=== PATIENT | female | born 1945 | race Caucasian/White ===

== ENCOUNTER 2018-06-24 14:10 | Inpatient (IN) | payer MEDICARE ==
--- NOTE | 2018-06-24 14:35 | ED ---
Head Injury - HPI Summary HPI Summary: This patient is a 73 year old F presenting to ED accompanied by and daughter with a chief complaint of increased confusion s/p fall and head injury x2 about 2 weeks ago. She also fell a couple times on March 26, 2018. She went prompted to come to the ED by Family Medicine for blood work and a CT. She also has been having visual hallucinations. The patient rates the pain 0/10 in severity. Symptoms aggravated by nothing. Symptoms alleviated by nothing. Patient denies N/V/D, fever, chills, dizziness/light-headedness, CP, SOB, dysuria, and hematuria. Denies FHx of Alzheimers. - History Of Current Complaint Chief Complaint: EDHeadInjury Stated Complaint: GENERAL ILLNESS Time Seen by Provider: 06/24/18 14:21 Hx Obtained From: Patient, Family/Epic Professional - accompanied by and daughter Mechanism Of Injury: Fall From A Standing Position Onset/Duration: Started Weeks Ago Severity Currently: None Pain Intensity: 0 Pain Scale Used: 0-10 Numeric Aggravating Factor(s): Other: - nothing Alleviating Factor(s): Other: - nothing Associated Signs And Symptoms: Confusion - Allergies/Home Medications Allergies/Adverse Reactions: Allergies Allergy/AdvReac Type Severity Reaction Status Date / Time Penicillins AdvReac Mild See Comment Verified 06/24/18 14:13 Home Medications: Home Medications ALPRAZolam TAB* [Xanax TAB*] 0.25 mg PO BID PRN 06/24/18 [History Confirmed 04/13] Aspirin EC TAB* [Ecotrin EC Low Dose 81 MG*] 81 mg PO DAILY 06/24/18 [History Confirmed 06/24/18] Budesonide/Formote 160/4.5(NF) [Symbicort 160/4.5 (NF)] 1 puff INH BID PRN 06/24 [History Confirmed 06/24/18] Cranberry Conc/Ascorbic Acid [Cranberry Concentrate] 1 cap PO DAILY 06/24/18 [ History Confirmed 06/24/18] Eszopiclone TAB(NF) [Lunesta TAB(NF)] 2 mg PO DAILY 06/24/18 [History Confirmed 06/24/18] Furosemide TAB* [Lasix TAB*] 40 mg PO DAILY 06/24/18 [History Confirmed 06/24/18 ] HYDROcodone/ACETAMIN 5-325 MG* [Hitterdal 5-325 TAB*] 1 tab PO Q6H PRN 06/24/18 [ History Confirmed 06/24/18] Metoprolol Tartrate TAB* [Lopressor TAB*] 50 mg PO BID 06/24/18 [History Confirmed 06/24/18] Montelukast Sodium TAB* [Singulair TAB*] 10 mg PO DAILY 06/24/18 [History Confirmed 06/24/18] Nitroglycerin TAB 0.4 MG* 0.4 mg SL Q5M PRN 06/24/18 [History Confirmed 06/24/18 ] Potassium 99 mg PO DAILY 06/24/18 [History Confirmed 06/24/18] Simvastatin TAB(NF) [Zocor(NF)] 20 mg PO DAILY 06/24/18 [History Confirmed 06/24] predniSONE TAB* [Deltasone 10 MG TAB*] 10 mg PO DAILY 06/24/18 [History Confirmed 06/24/18] PMH/Surg Hx/FS Hx/Imm Hx Cardiovascular History: Reports: Hx Hypercholesterolemia, Hx Hypertension Denies: Other Cardiovascular Problems/Disorders Respiratory History: Reports: Hx Chronic Bronchitis, Hx Chronic Obstructive Pulmonary Disease (COPD) Denies: Other Respiratory Problems/Disorders Musculoskeletal History: Reports: Hx Back Problems - in approximately 2008, no problem since Sensory History: Reports: Hx Contacts or Glasses Opthamlomology History: Reports: Hx Contacts or Glasses Psychiatric History: Reports: Hx Anxiety - When trouble breathing. Denies: Other Psychiatric Issues/Disorders - Surgical History Surgery Procedure, Year, and Place: hysterectomy, cyst removal x 2 in right breast, benign. Hx Anesthesia Reactions: No - Immunization History Date of Tetanus Vaccine: Unk Date of Influenza Vaccine: Fall 2012 Infectious Disease History: No Infectious Disease History: Denies: Traveled Outside the [place] in Last 30 Days - Family History Known Family History: Positive: Cardiac Disease, Diabetes - Social History Alcohol Use: None Substance Use Type: Reports: None Smoking Status (MU): Former Smoker Review of Systems Negative: Fever, Chills Negative: Erythema Negative: Sore Throat Negative: Chest Pain Negative: Shortness Of Breath, Cough Negative: Abdominal Pain, Vomiting, Diarrhea, Nausea Negative: dysuria, hematuria Positive: Other - head injury with fall x2, 2 weeks ago. Negative: Myalgia, Edema Negative: Rash Neurological: Other - increased confusion and visual hallcuinations; denies dizziness/light-headedness All Other Systems Reviewed And Are Negative: Yes Physical Exam - Summary Physical Exam Summary: Constitutional: Well-developed, Well-nourished, Alert. (-) Distressed Skin: Warm, Dry HENT: Normocephalic; Atraumatic Eyes: Conjunctiva normal Neck: Musculoskeletal ROM normal neck. (-) JVD, (-) Stridor, (-) Tracheal deviation Cardio: Rhythm regular, rate normal, Heart sounds normal; Intact distal pulses; The pedal pulses are 2+ and symmetric. Radial pulses are 2+ and symmetric. (-) Murmur Pulmonary/Chest wall: Effort normal. (-) Respiratory distress, (-) Wheezes, (-) Rales Abd: Soft, (-) epigastric tenderness, (-) Distension, (-) Guarding, (-) Rebound Musculoskeletal: (-) Edema Lymph: (-) Cervical adenopathy Neuro: Alert, Oriented x3 Psych: Mood and affect Normal GCS: 15 Triage Information Reviewed: Yes Vital Signs On Initial Exam: Initial Vitals Temp Pulse Resp BP Pulse Ox 97.9 F 86 15 133/93 98 06/24/18 14:13 06/24/18 14:13 06/24/18 14:13 06/24/18 14:13 06/24/18 14:13 Vital Signs Reviewed: Yes Diagnostics - Vital Signs Vital Signs Temp Pulse Resp BP Pulse Ox 06/24/18 14:13 97.9 F 86 15 133/93 98 - Laboratory Result Diagrams: 06/24/18 15:05 06/24/18 15:05 Lab Statement: Any lab studies that have been ordered have been reviewed, and results considered in the medical decision making process. - Radiology CXR Radiology Interpretation Completed By: Radiologist Summary of Radiographic Findings: Stigmata of obstructive lung disease. No acute pulmonary or cardiac process evident. Dr. Walls has reviewed this radiology report. - CT Brain CT CT Interpretation Completed By: Radiologist Summary of CT Findings: No intracranial mass or hemorrhage is noted. Chronic ischemic White matter change is noted. Dr. Walls has reviewed this radiology report. - EKG 1436 Cardiac Rate: Tachycardia - 108 BPM EKG Rhythm: Sinus Tachycardia Summary of EKG Findings: No STEMI Re-Evaluation - Re-Evaluation First Eval Re-Evaluation Time: 15:59 Change: Improved Comment: The patient feels better. Discussed results with the patient and plan for admission. Patient understands and agrees with this plan. Head Injury Course/Dx Assessment/Plan: This patient is a 73 year old F presenting to ED accompanied by and daughter with a chief complaint of increased confusion s/p fall and head injury x2 about 2 weeks ago. In the ED course, the patient was given fluids and Rocephin. EKG reveals sinus tachycardia at 108 BPM and no STEMI. CXR reveals stigmata of obstructive lung disease. No acute pulmonary or cardiac process evident. Brain CT reveals no intracranial mass or hemorrhage is noted. Chronic ischemic White matter change is noted. This patient will be admitted with dx of UTI and delirium. Patient understands and agrees with this plan. - Diagnoses Differential Diagnosis/HQI/PQRI: Other - UTI and delirium Provider Diagnoses: UTI (urinary tract infection), Delirium - Physician Notifications Discussed Care Of Patient With: Gavino Mcrae Time Discussed With Above Provider: 16:13 Instructed by Provider To: Admit As Inpatient Discharge - Sign-Out/Discharge Documenting (check all that apply): Patient Departure - admit Patient Received Moderate/Deep Sedation with Procedure: No - Discharge Plan Condition: Stable Disposition: [facility]ITTED [facility] Referrals: Heriberto Galeas MD [Primary Care Provider] - - Attestation Statements Document Initiated by Scribe: Yes Documenting Scribe: Noe Rush Provider For Whom Scribe is Documenting (Include Credential): Andrea Walls MD Scribe Attestation: Noe Sanchez, scribed for Andrea Walls MD on 06/24/18 at 1656. Status of Scribe Document: Ready
--- OUTSIDE RECORDS SUMMARY | 2018-06-24 14:41 | XMS REPORT | Continuity of Care Document ---
:1945 External Reference #:[id number] Author Name Amanda Reese NP Address [address] [place] [address] Care Team Providers Name Role Phone Heriberto Galeas MD Care Team Information Repair Tech Unavailable Heriberto Galeas MD Primary Care Physician Unavailable Payers Date Identification Numbers Payment Provider Subscriber Effective: 2012 Policy Number: [id number] [employer] [place] PayID: [id number] [address] [place] [address] Effective: 2012 Policy Number: [id number] [employer] [place] Expires: 2018 PayID: [id number] [address] [place] [address] Advance Directives Description No Information Available Problems Date Description Provider Status Onset: 07/10/2012 Chronic obstructive lung disease Mateus Tee M.D. Active Family History Description No Information Available Social History Type Date Description Comments Sex Unknown Lives With Spouse Diet Healthy, Well Balanced Sleep Reports continuity disturbances Occupation Retired Tobacco Use Start: Unknown End: Unknown Former Cigarette Smoker 1 Pack Daily Tobacco Use Start: Unknown End: Unknown Patient is a former smoker Smoking Status Reviewed: 06/24/18 Patient is a former smoker Allergies, Adverse Reactions, Alerts Date Description Reaction Status Severity Comments 08/14/2012 Augmentin vomiting Active 04/10/2015 Azithromycin rash Active 10/23/2017 Penicillin Active 11/06/2011 NKDA Inactive Medications Medication Date Status Form Strength Qnty SIG Indications Ordering Provider Naproxen Active Tablets 375mg 30tabs take one Heriberto J. 018 tablet by [place], mouth twice M.D. daily with meals Lidocaine Active Ointment 5% 35.44gm apply three Alise 017 times a day Maria Eugenia, to affected [employer] area as needed Hydrocodone-A Active Tablets 10-325mg 120tabs 1 by mouth S23.8xxA Alise cetaminophen 017 every 6 - 8 Maria Eugenia, hours as [employer] needed pain W57.xxxA Oxygen 11/02/2016 Active 2Pounds 1units use when J44.9 Alise Concentrator Battery out of home Maria Eugenia, Backup [employer] Furosemide 01/12/2016 Active Tablets 20mg 30tabs take 1 Alise tablets by Maria Eugenia, mouth daily [employer] Eszopiclone 09/20/2015 Active Tablets 2mg 30tabs 1 by mouth G47.00 Heriberto Benson every night [place], at bedtime M.D. Prednisone 04/05/2015 Active Tablets 10mg 60tabs 1-2 by J44.9 Heriberto J. mouth every [place], day M.D. Ipratropium 07/30/2014 Active Solution 0.5-2.5(3 540units use one J44.9 Heriberto Kelley Jellico/Albute )mg/3ML ampule in [place], rol Sulfate nebulizer M.D. every 4 to 6 hours as needed Ipratropium 04/23/2014 Active Solution 0.5-2.5(3 270ml use one J44.9 Heriberto JMaikel Jellico/Albute )mg/3ML vial in [place], rol Sulfate nebulizer M.D. every 4 to 6 hours as needed dx j44.9 Xanax 03/06/2013 Active Tablets 0.25mg 60tabs 1 tab by F41.9 Alise mouth twice Maria Eugenia, a day as [employer] needed dt Nebulizer - 10/30/2012 Active use when J44.9 Alise Hand Held out of the Maria Eugenia, Portable home qd-tid [employer] prn for severe COPD Proair HFA 08/14/2012 Active Aerosol 108(90Bas 1units 2 puffs J44.9 Alise e) every 3-4h Maria Eugenia, mcg/Act as needed [employer] cough/wheez e/sob Nebulizer Set 06/24/2012 Active 2units dx: COPD J44.9 Alise Up And Tubing Maria Eugenia, [employer] lifelong Nebulizer 06/24/2012 Active 2units dx: COPD 466.0 Alise Del Cid, [employer] lifelong J44.9 Symbicort 06/24/2012 Active Aerosol 160-4.5mcg/Act 1inhaler inhale 466.0 Amanda Savanna two puffs Reese, by mouth [employer] twice daily J44.9 Multivitamins 11/06/2011 Active Tablets 1 po qd [facility] Fish Oil 11/06/2011 Active Capsules 1000 1 po qd Family mg Medicine [facility] Meghan Womens Plus 02/21/2008 Active Tablets 1 PO qd [facility] Calcium Medicine [facility] Zocor 12/24/2002 Active 40mg 30un 1 PO QHS [facility] its [facility] Metoprolol 12/24/2002 Active 50mg 0uni 1 bid [facility] ts [facility] Ventolin HFA 08/01/2017 - Hx Aerosol 108( 8gm 2 puffs J44. Alise Del Cid , 08/01/2017 90Ba every 3-4h 9 [employer] se) as needed mcg/ cough/wheez Act e/sob Metaxalone 02/26/2017 - Hx Tablets 800m 45ta 1\\2 by Alise Del Cid, 07/18/2017 g bs mouth every [employer] 8h during the day and 1 at hs as needed muscle spasm Olopatadine HCL 01/15/2016 - Hx Solution 0.1% 5ml 1 qtt in Alise Del Cid, 07/18/2017 each eye [employer] bid Dyazide 10/14/2015 - Hx Capsules 37.5 30ca 1 by mouth Alise Del Cid, 01/12/2016 -25m ps every day [employer] g Doxycycline 04/10/2015 - Hx Tablets 100m 20ta 1 by mouth Ember Ailyn , Hyclate 04/20/2015 g bs twice a day Afnp-C x 10 days Lyrica 04/05/2015 - Hx Capsules 25mg 90ca 1 by mouth S23. Alise Del Cid, 01/12/2016 ps three times 3xxA [employer] a day Azithromycin 04/05/2015 - Hx Tablets 250m 12ta take 2 J44. Alise Del Cid , 04/10/2015 g bs tablets by 9 [employer] mouth x 3d then take 1 tablet daily for next 6 days Hydrocodone-Acetam 01/21/2015 - Hx Tablets 5-32 90ta 1-2 by S23. Alise Del Cid, inophen 02/26/2017 5mg bs mouth every 3xxA [employer] 6-8h as needed pain S23.8xxA Cyclobenzaprine 07/30/2014 - Hx Tablets 5mg 60tabs 1-2 by S23.3xxA Alise HCL 01/12/2016 mouth at Maria Eugenia, bedtime as [employer] needed Budesonide 12/15/2013 - Hx Suspension 0.5mg 60vials use two Alise 04/23/2014 /2ML vials in Maria Eugenia, nebulizer [employer] twice daily dx: copd, lifelong (496) Pulmicort 10/20/2013 - Hx Suspension 1mg/2 30units use in 6 Alise 12/15/2013 ML nebulizer Maria Eugenia, qd-bid Dx: [employer] COPD Dx Code-496 Spiriva 10/20/2013 - Hx Capsules 18mcg 30caps inhale the J44.[address] [facility] Handihaler 07/18/2017 contents of Maria Eugenia, 1 capsule [employer] daily Montelukast 06/18/2013 - Hx Tablets 10mg 30tabs 1 by mouth J30.0 Heriberto J. Sodium 07/19/2017 every day [place] Galeas J30.9 Note 06/18/2013 - Hx patient needs Alise 10/19/2013 overnight Maria Eugenia, [employer] oximetry to requalify for her Oxygen Fluticasone 04/26/2013 - Hx Suspension 50mc 1un use two sprays 477.9 Alise Propionate 07/30/2014 g/Ac its in each Maria Eugenia, [employer] t nostril daily Keflex 04/17/2013 - Hx Capsules 500m 14c 1 po bid x 7 460 Candace 06/18/2013 g aps days MADELAINE Hall Doxycycline 03/14/2013 - Hx Tablets 100m 20t 1po bid x 10d 496 Alise Hyclate 04/16/2013 g abs Maria Eugenia, [employer] Physical Therapy 03/14/2013 - Hx Pulmonary 496 Alise 04/16/2013 p.t., dx: COPD Maria Eugenia, [employer] Acetylcysteine 02/27/2013 - Hx Solution 20% 270 3ml via Heriberto J. 10/20/2013 ml Nebulizer tid Breiman, as needed dx [place] code: 496, dx:COPD Note 02/25/2013 - Hx Oral suction Heriberto Benson 03/13/2013 machine and Gudelia, accessories [place] dx:copd, increased secretions Levofloxacin 11/04/2012 - Hx Tablets 500m 7ta 1 po qd Alise 03/13/2013 g bs MADELAINE Del Cid Lidocaine 10/30/2012 - Hx Ointment 5% 35. apply tid to Alise 04/23/2014 44g affected area MAEDLAINE Del Cid m prn Azithromycin 10/30/2012 - Hx Tablets 250m 12t take 2 tablets 496 Alise 11/04/2012 g abs by mouth x 3d MADELAINE Del Cid then take 1 tablet daily for next 6 days Prednisone 10/30/2012 - Hx Tablets 10mg 60t take one to J44.9 Alise 04/05/2015 abs two tablets by MADELAINE Del Cid mouth once daily Biaxin 09/18/2012 - Hx Tablets 500m 20t 1 po bid x10 Alise 10/30/2012 g abs days MADELAINE Del Cid Prednisone 08/31/2012 - Hx Tablets 5mg 30t 1 po qd Alise 10/30/2012 abs MADELAINE Del Cid Azithromycin 08/14/2012 - Hx Tablets 250m 6ta take 2 tablets 496 Alise 09/18/2012 g bs by mouth MADELAINE Del Cid today then take 1 tablet daily for next 4 days Prednisone 08/14/2012 - Hx Tablets 10mg 16t 3 qd x 2 days, 496 Alise 10/30/2012 abs 2 qd x 2d 1 qd MADELAINE Del Cid x 2d then 1\\2 qd for 8d Generator - Gas 07/22/2012 - Hx to use to run Alise Powered 03/13/2013 o2 if electric MADELAINE Del Cid power is out Pulse Oximeter 07/22/2012 - Hx measure o2 496 Alise 03/13/2013 level daily MADELAINE Del Cid Air Conditioner 07/22/2012 - Hx to use in one [facility] 03/13/2013 room during MADELAINE Del Cid the hot humid weather dx: COPD Lorazepam 07/10/2012 - Hx Tablets 0.5m 30t 1 po prn Alise 04/23/2014 g abs anxiety MADELAINE Del Cid Note 07/03/2012 - Hx Please titrate Alise 07/18/2017 conserving MADELAINE Del Cid device to keeps sats above 90% Azithromycin 06/24/2012 - Hx Tablets 250m 6ta take 2 tablets 466.0 Alise 07/10/2012 g bs by mouth MADELAINE Del Cid today then take 1 tablet daily for next 4 days Ipratropium 06/24/2012 - Hx Solution 0.5- 540 use one vial 496 Alise Jellico/Albuterol 04/23/2014 2.5( uni in nebulizer MADELAINE eDl Cid Sulfate 3)mg ts every 4 to 6 /3ML hours as needed dx: copd 496 Augmentin 02/28/2012 - Hx Tablets 500m 20t 1 po bid with 473.9 Alise 06/24/2012 g abs food x 10 days MADELAINE Del Cid Azithromycin 11/06/2011 - Hx Tablets 250m 6ta take 2 tablets 466.0 Alise 02/28/2012 g bs by mouth MADELAINE Del Cid today then take 1 tablet daily for next 4 days Note Due To 01/01/2009 - Hx Cheikh has Alise Health Issues 01/02/2009 improved and MADELAINE Del Cid may return to work 01/04/09 Note Due To 12/29/2008 - Hx Cheikh Alise Health Issues 11/06/2011 continues to MADELAINE Del Cid be unable to work due to illness and may not return to work until Sunday, \\\\ Augmentin 12/21/2008 - Hx Tablets 500m 20t 1 po bid with 473.9 Alise 11/06/2011 g abs food x 10 days MADELAINE Del Cid Optivar 04/24/2008 - Hx Solution 0.05 1un 1 qtt in Heriberto J. 11/06/2011 % its affected Breiman, eye(s) bid M.Aristeo Zithromax 04/01/2008 - Hx Tablets 250m 6Ta 2 po qd today 466.0 Alise 12/21/2008 g bs , then 1 po qd MADELAINE Del Cid times 4 Note Due To 04/01/2008 - Hx cheikh was 724.3 Alise Health Issues 04/25/2008 seen by MADELAINE Rob today and may not return to work until evaluated again 2\\6\\09 Symbicort 04/01/2008 - Hx Aerosol 160- 1un 2 puff bid 466.0 Alise 06/24/2012 4.5 its MADELAINE Del Cid Note Due To 03/13/2008 - Hx cheikh 724.3 Alise Health Issues 04/01/2008 continues to MADELAINE Del Cid be unable to work due to medical condition and may not return to work until 1\\5\\09 Physical Therapy 03/09/2008 - Hx treatment and 724.3 Alise 12/21/2008 evaluation l MADELAINE Del Cid sciatic pain Note Due To 03/09/2008 - Hx cheikh was 724.3 Alise Health Issues 03/13/2008 seen by MADELAINE Rob today and may not return to work until sunday, 12\\22\\08 Vicodin 02/21/2008 - Hx Tablets 5-50 40t 1 po q6 hrs 724.3 Alise 11/06/2011 0mg abs prn MADELAINE Del Cid Motrin 02/21/2008 - Hx Tablets 600m 60t 1 po every 12 724.3 Alise 11/06/2011 g abs hours MADELAINE Del Cid Flexeril 02/21/2008 - Hx Tablets 5mg 30t one tab po qhs 724.3 Alise 11/06/2011 abs prn spasm MADELAINE Del Cid Note 02/21/2008 - Hx please excuse Mateus Campo 03/09/2008 cheikh from [place] Tee work today due to A medical problem thanks Note No Work 05/01/2007 - Hx cheikh was 466.0 Alise 02/21/2008 seen by MADELAINE Rob today and may not return until sunday, 2\\11\\08 Zithromax 07/03/2006 - Hx Capsules 250m 6ca 2 tabs po x1, 466.0 Cory F. 05/01/2007 g ps then 1 tab po Shallish, qd x 4 more M.D. days Robitussin ac 07/03/2006 - Hx 4Oz 1-2 tsp po q4h 466.0 Alise 02/21/2008 prn cough MADELAINE Del Cid Ambien CR 07/03/2006 - Hx 12.5 30u 1 po q hs 780.52 Alise 11/06/2011 mg nit MADELAINE Del Cid s dt Wellbutrin XL 06/25/2006 - Hx Tablets 150m 60t 2 po qd 305.1 Alise 03/09/2008 g abs MADELAINE Del Cid Amoxicillin 09/19/2004 - Hx Capsules 500m 21c 1 tid Heriberto Benson 07/03/2006 g gianna Galeas M.D. Diflucan 09/19/2004 - Hx Tablets 150m 1ta single dose Gavino 07/03/2006 g bs MADELAINE [place] 09/19/2004 - Hx Tablets 60mg 60t 1 q12 h Gavino 07/03/2006 abs MADELAINE [place] Out Of Work 09/19/2004 - Hx will be out of Gavino 07/03/2006 work until MADELAINE [place] 09/21/04 Topicort 12/24/2002 - Hx .25% 30u Apply To Heriberto Benson 09/19/2004 nit Affected Area wade Galeas bid-tid [place] Augmentin 12/24/2002 - Hx 500m 20u 1 bid Heriberto Benson 09/19/2004 g wade Valentine M.D. Meridia 04/18/2001 - Hx 10mg 30u One qd Heriberto Benson 12/24/2002 wade Valentine M.D. Pleginanaly 04/17/2001 - Hx 35mg 90u 1 tid Heriberto Benson 04/18/2001 wade Valentine M.D. 05/12/1998 - Hx 35mg 90u 1 tid Heriberto Benson 04/17/2001 wade Valentine M.D. Robitussin ac 04/15/1998 - Hx 4Oz 1-2 TSP PO Q4H Cory FMaikel 04/23/1998 prn Cough [place] Bowden Zithromax 04/15/1998 - Hx 250m 6un 2 Tabs Day 1 Cory FMaikel 04/22/1998 g its Kal 1 [place] Tab qd Days 2 Thru 5 Out Of Work 04/15/1998 - Hx Will Be Out Of Cory Aguero 04/16/1998 Work Until [place] Bowden 04/19/98 Estrogen 04/06/1998 - Hx Cory F. 12/24/2002 [place] Bowden Augmentin 04/06/1998 - Hx 500m 14u 1 PO bid X 7 Cory F. 04/13/1998 g nit Days wade Bowden M.D. Cortisporin Otic 04/06/1998 - Hx 1Bo 4-5 gtts Into Cory F. Susp 04/16/1998 ttl R Ear qid Reyes Bowden M.D. Niaspan - Hx Tablets 500m Unknown 11/06/2011 g Immunizations CPT Code Status Date Vaccine Lot # [id number] Given 01/12/2016 Zostivax [id number] Given 01/12/2016 High-Dose, Influenza Virus Vacccine-fluzone 65 and [id number] older 56703 Given 01/16/2014 DO Not Use Split Influenza Virus Vaccine 92887 Given 01/02/2013 DO Not Use Split Influenza Virus Vaccine 39675 Given 01/04/2012 DO Not Use Split Influenza Virus Vaccine [id number] 78586 Given 01/27/2011 DO Not Use Split Influenza Virus Vaccine [id number] 33198 Given 12/24/2009 DO Not Use Split Influenza Virus Vaccine 21467 Given 03/09/2008 DO Not Use Split Influenza Virus Vaccine [id number] Vital Signs Date Vital Result Comment 06/24/2018 12:48pm BP Systolic 122 mmHg BP Diastolic 70 mmHg Heart Rate 74 /min Body Temperature 97.9 F Respiratory Rate 20 /min O2 % BldC Oximetry 99 % W/O O2 Height 64 inches 5'4" Weight 133.00 lb BMI (Body Mass Index) 22.8 kg/m2 10/23/2017 3:19pm BP Systolic 142 mmHg BP Diastolic 92 mmHg Heart Rate 106 /min Body Temperature 98.1 F O2 % BldC Oximetry 91 % Height 64 inches 5'4" Weight 157.00 lb BMI (Body Mass Index) 26.9 kg/m2 07/19/2017 3:45pm BP Systolic 160 mmHg BP Diastolic 80 mmHg Heart Rate 96 /min Body Temperature 97.7 F Height 64 inches 5'4" Weight 164.00 lb BMI (Body Mass Index) 28.1 kg/m2 11/02/2016 3:58pm BP Systolic 170 mmHg BP Diastolic 86 mmHg Heart Rate 68 /min Body Temperature 98.8 F Respiratory Rate 16 /min Height 64 inches 5'4" Weight 177.00 lb BMI (Body Mass Index) 30.4 kg/m2 01/12/2016 12:53pm BP Systolic 120 mmHg BP Diastolic 80 mmHg Heart Rate 80 /min Body Temperature 98.0 F Respiratory Rate 18 /min Height 64 inches 5'4" Weight 190.00 lb BMI (Body Mass Index) 32.6 kg/m2 04/05/2015 11:56am BP Systolic 138 mmHg BP Diastolic 70 mmHg Heart Rate 80 /min Body Temperature 98.0 F Respiratory Rate 18 /min Height 64 inches Weight 185.00 lb BMI (Body Mass Index) 31.8 kg/m2 07/30/2014 2:02pm BP Systolic 134 mmHg BP Diastolic 70 mmHg Heart Rate 86 /min Body Temperature 98.1 F Respiratory Rate 22 /min O2 % BldC Oximetry 91 % Height 64 inches 5'4" Weight 208.00 lb BMI (Body Mass Index) 35.7 kg/m2 04/23/2014 12:53pm BP Systolic 130 mmHg BP Diastolic 60 mmHg Heart Rate 90 /min Body Temperature 96.4 F Respiratory Rate 18 /min Height 64 inches 5'4" Weight 206.50 lb BMI (Body Mass Index) 35.4 kg/m2 10/20/2013 1:24pm BP Systolic 134 mmHg BP Diastolic 66 mmHg Heart Rate 90 /min Body Temperature 98.2 F Height 70 inches 5'10" Weight 210.00 lb BMI (Body Mass Index) 30.1 kg/m2 06/18/2013 11:14am BP Systolic 128 mmHg BP Diastolic 60 mmHg Heart Rate 78 /min Body Temperature 98.2 F Height 70 inches 5'10" Weight 212.00 lb BMI (Body Mass Index) 30.4 kg/m2 04/17/2013 7:42pm BP Systolic 154 mmHg BP Diastolic 88 mmHg Heart Rate 85 /min Body Temperature 97.7 F Respiratory Rate 18 /min O2 % BldC Oximetry 91 % Height 70 inches 5'10" Weight 215.50 lb BMI (Body Mass Index) 30.9 kg/m2 03/14/2013 10:27am BP Systolic 144 mmHg BP Diastolic 72 mmHg Heart Rate 89 /min Body Temperature 97.8 F Respiratory Rate 22 /min O2 % BldC Oximetry 90 % Height 70 inches 5'10" Weight 216.00 lb BMI (Body Mass Index) 31.0 kg/m2 10/30/2012 12:55pm BP Systolic 148 mmHg BP Diastolic 88 mmHg Heart Rate 84 /min Body Temperature 97.7 F Respiratory Rate 20 /min O2 % BldC Oximetry 93 % Height 70 inches 5'10" Weight 205.00 lb BMI (Body Mass Index) 29.4 kg/m2 08/14/2012 11:31am BP Systolic 196 mmHg BP Diastolic 96 mmHg Heart Rate 86 /min Body Temperature 98.8 F Respiratory Rate 28 /min O2 % BldC Oximetry 933 % Height 70 inches 5'10" Weight 203.00 lb BMI (Body Mass Index) 29.1 kg/m2 07/10/2012 9:28am BP Systolic 108 mmHg BP Diastolic 58 mmHg Heart Rate 72 /min Body Temperature 97.8 F O2 % BldC Oximetry 9832 % Height 70 inches 5'10" Weight 203.00 lb BMI (Body Mass Index) 29.1 kg/m2 06/24/2012 5:58pm BP Systolic 176 mmHg BP Diastolic 90 mmHg Heart Rate 73 /min Body Temperature 97.2 F O2 % BldC Oximetry 95 % Height 70 inches 5'10" Weight 204.00 lb BMI (Body Mass Index) 29.3 kg/m2 11/06/2011 3:06pm BP Systolic 126 mmHg BP Diastolic 76 mmHg Heart Rate 66 /min Body Temperature 98.7 F Height 70 inches 5'10" Stated Weight 204.00 lb BMI (Body Mass Index) 29.3 kg/m2 12/21/2008 2:14pm BP Systolic 130 mmHg BP Diastolic 80 mmHg Heart Rate 76 /min Body Temperature 98.3 F Height 70 inches 5'10" Stated Weight 211.00 lb BMI (Body Mass Index) 30.3 kg/m2 04/24/2008 11:25am BP Systolic 124 mmHg BP Diastolic 70 mmHg Heart Rate 72 /min Height 70 inches 5'10" Stated Weight 203.00 lb BMI (Body Mass Index) 29.1 kg/m2 04/01/2008 3:59pm BP Systolic 140 mmHg BP Diastolic 80 mmHg Heart Rate 76 /min Body Temperature 98.1 F Respiratory Rate 20 /min Height 70 inches 5'10" Stated Weight 203.00 lb BMI (Body Mass Index) 29.1 kg/m2 03/09/2008 4:24pm BP Systolic 120 mmHg BP Diastolic 80 mmHg Heart Rate 92 /min Body Temperature 98.5 F Height 70 inches 5'10" Stated Weight 205.00 lb BMI (Body Mass Index) 29.4 kg/m2 02/21/2008 9:06am BP Systolic 122 mmHg BP Diastolic 62 mmHg Heart Rate 60 /min Height 70 inches 5'10" Stated Weight 203.00 lb BMI (Body Mass Index) 29.1 kg/m2 05/01/2007 1:53pm BP Systolic 120 mmHg BP Diastolic 70 mmHg Heart Rate 78 /min Body Temperature 99.0 F Weight 220.00 lb 07/03/2006 4:40pm BP Systolic 120 mmHg BP Diastolic 70 mmHg Heart Rate 64 /min Body Temperature 98.7 F Weight 221.00 lb 09/19/2004 6:46pm BP Systolic 128 mmHg BP Diastolic 72 mmHg Body Temperature 98.1 F Weight 227.00 lb 12/24/2002 3:59pm BP Systolic 132 mmHg BP Diastolic 80 mmHg Heart Rate 72 /min Body Temperature 97.7 F Weight 209.00 lb 05/27/2001 10:47am BP Systolic 110 mmHg BP Diastolic 62 mmHg Heart Rate 84 /min Weight 199.00 lb 04/17/2001 3:53pm BP Systolic 130 mmHg BP Diastolic 70 mmHg Heart Rate 64 /min Weight 204.00 lb 08/09/1998 7:59am BP Systolic 132 mmHg BP Diastolic 80 mmHg Weight 164.00 lb 07/05/1998 8:18am BP Systolic 120 mmHg BP Diastolic 80 mmHg Weight 162.00 lb 06/04/1998 4:36pm BP Systolic 132 mmHg BP Diastolic 70 mmHg Weight 168.50 lb 05/12/1998 2:26pm BP Systolic 134 mmHg LA SM Cuff BP Diastolic 68 mmHg LA SM Cuff Height 70 inches 5'10" Weight 176.00 lb 04/15/1998 1:44pm Body Temperature 97.6 F 04/06/1998 4:35pm BP Systolic 120 mmHg BP Diastolic 72 mmHg Body Temperature 98.1 F Height 70.5 inches 5'10.50" Weight 170.00 lb Results Test Date Facility Test Result H/L Range Note Ua - Micro (a) 04/23/2014 [facility] Appearance CLEAR (607)- - Color YELLOW Glucose, Urine (Fma/CMC/CTX) NEG Bilirubin NEG Ketones TRACE # SP Grav 1.020 Blood NEG PH 5.5 Protein SSA:NEG Urobil 0.2 Nitrite NEG Leukocytes (Fma/CMC/Centrex) MODERATE # Hyaline - /Lpf Granular - /Lpf WBC (Fma,Centrex) 10-15 # RBC 1-2 # Mucus - /Lpf Epith OCC /Lpf # Bacteria 1+ /Hpf # Amorphous - /Lpf Crystals, Fluid (Fma/CMC/CTX) - Z#Comments - Basic Metabolic Panel 01/13/2014 [facility] [place] Sodium 139 mmol/L N 133-145 1 Potassium 3.6 mmol/L Low 3.7-5.6 Chloride 102 mmol/L N 101-111 Co2 Carbon Dioxide 29 mmol/L N 22-32 Anion Gap 8 mmol/L N 2-11 Glucose 97 mg/dL N 70-100 Blood Urea Nitrogen 12 mg/dL N 6-24 Creatinine 0.80 mg/dL N 0.51-0.95 BUN/Creatinine Ratio 15.0 N 8-20 Calcium 9.4 mg/dL N 8.6-10.3 Egfr Non- 71.8 N >60 Egfr 92.3 N >60 2 Lipid Profile (Trig/Chol/HDL) 01/13/2014 [facility] [place] Triglycerides 191 mg/dL N 3 Cholesterol 138 mg/dL N 4 HDL Cholesterol 50.6 mg/dL N 5 LDL Cholesterol 49 mg/dL N 6 Laboratory test finding 01/13/2014 [facility] [place] Alt 21 U/L N 7-52 7 Arterial Blood Gas 02/20/2013 [facility] [place] PH Arterial 7.39 7.35-7.45 Pco2 Arterial 43 mmHg 35-45 Po2 Arterial 66 mmHg Low 80-100 8 O2 Saturation Arterial 92.0 % Low 95-98 Base Excess Arterial 0.7 -2.0-2.0 9 Hco3 Arterial 25.3 mmol/L 19-31 O2 Device 3LNC CBC Auto Diff 02/20/2013 [facility] [place] White Blood Count 11.4 10^3/uL High 4.8- 10.8 Red Blood Count 4.14 10^6/uL 4.0-5.4 Hemoglobin 13.1 g/dL 12.0-16.0 Hematocrit 40 % 35-47 Mean Corpuscular Volume 96 fL 80-97 Mean Corpuscular Hemoglobin 32 pg High 27-31 Mean Corpuscular HGB Conc 33 g/dL 31-36 Red Cell Distribution Width 14 % 10.5-15 Platelet Count 250 10^3/uL 150-450 Mean Platelet Volume 8 um3 7.4-10.4 Abs Neutrophils 9.0 10^3/uL High 1.5-7.7 Abs Lymphocytes 1.1 10^3/uL 1.0-4.8 Abs Monocytes 0.7 10^3/uL 0-0.8 Abs Eosinophils 0.5 10^3/uL 0-0.6 Abs Basophils 0.1 10^3/uL 0-0.2 Abs Nucleated RBC 0 10^3/uL Granulocyte % 79.4 % 38-83 Lymphocyte % 9.3 % Low 25-47 Monocyte % 5.8 % 1-9 Eosinophil % 4.8 % 0-6 Basophil % 0.7 % 0-2 Nucleated Red Blood Cells % 0 Inr/Protime 02/20/2013 [facility] [place] Inr 0.96 0.85-1.06 10 Laboratory test 02/20/2013 [facility] [place] Activated Partial 29.3 seconds 24.0-36.1 11 finding Thrombo Time Comp Metabolic Panel 02/20/2013 [facility] [place] Sodium 138 mmol/L 133-145 Potassium 4.0 mmol/L 3.5-5.0 Chloride 103 mmol/L 101-111 Co2 Carbon Dioxide 28.0 mmol/L 22-32 Anion Gap 7.0 mmol/L 2-11 Glucose 106 mg/dL High 70-100 Blood Urea Nitrogen 11 mg/dL 6-24 Creatinine 0.70 mg/dL 0.50-1.40 BUN/Creatinine Ratio 15.7 8-20 Calcium 9.0 mg/dL 8.1-9.9 Total Protein 7.2 g/dL 6.2-8.1 Albumin 3.9 g/dL 3.2-5.2 Globulin 3.3 g/dL 2-4 Albumin/Globulin Ratio 1.2 1-3 Total Bilirubin 0.9 mg/dL 0.4-1.5 Alkaline Phosphatase 61 U/L 30-110 Alt 23 U/L 14-54 Ast 22 U/L 12-42 Egfr Non- 84.0 >60 Egfr 108.0 >60 12 Laboratory test finding 02/20/2013 [facility] [place] Lactic Acid 1.1 mmol/L 0.5-1.6 13 Troponin I 0 ng/mL 0-0.06 14 B Type Natriuretic Peptide 48.0 pg/mL 0-100 Basic Metabolic Panel 12/09/2012 [facility] [place] Sodium 142 mmol/L 133-145 Potassium 4.4 mmol/L 3.5-5.0 Chloride 104 mmol/L 101-111 Co2 Carbon Dioxide 30.0 mmol/L 22-32 Anion Gap 8.0 mmol/L 2-11 Glucose 101 mg/dL High 70-100 Blood Urea Nitrogen 16 mg/dL 6-24 Creatinine 0.70 mg/dL 0.50-1.40 BUN/Creatinine Ratio 22.9 High 8-20 Calcium 10.0 mg/dL High 8.1-9.9 Egfr Non- 84.0 >60 Egfr 108.0 >60 15 Laboratory test 06/27/2012 [facility] [place] B Type Natriuretic 131.0 pg/mL High 0-100 finding Peptide Arterial Blood Gas 06/27/2012 [facility] [place] PH Arterial 7.35 7.35-7.45 Pco2 Arterial 43 mmHg 35-45 Po2 Arterial 98 mmHg 80-100 O2 Saturation Arterial 96.7 % 95-98 Base Excess Arterial -2.0 -2.0-2.0 16 Hco3 Arterial 23.2 mmol/L 19-31 O2 Device NC Fio2 2 Comp Metabolic Panel 06/27/2012 [facility] [place] Sodium 140 mmol/L 133-145 Potassium 3.7 mmol/L 3.5-5.0 Chloride 104 mmol/L 101-111 Co2 Carbon Dioxide 25.0 mmol/L 22-32 Anion Gap 11.0 mmol/L 2-11 Glucose 144 mg/dL High 70-100 Blood Urea Nitrogen 9 mg/dL 6-24 Creatinine 0.60 mg/dL 0.50-1.40 BUN/Creatinine Ratio 15.0 8-20 Calcium 9.7 mg/dL 8.1-9.9 Total Protein 7.6 g/dL 6.2-8.1 Albumin 4.2 g/dL 3.2-5.2 Globulin 3.4 g/dL 2-4 Albumin/Globulin Ratio 1.2 1-3 Total Bilirubin 0.5 mg/dL 0.4-1.5 Alkaline Phosphatase 71 U/L 30-110 Alt 21 U/L 14-54 Ast 25 U/L 12-42 Egfr Non- 100.3 >60 Egfr 129.0 >60 17 Laboratory test 06/27/2012 [facility] [place]roponin I 0.15 ng/mL High 0-0.06 18 finding CKMB 06/27/2012 [facility] [place] CKMB ng/mL 3.5 ng/mL 0.3-4.0 19 CBC Auto Diff 06/27/2012 [facility] [place] White Blood Count 12.7 10^3/uL High 4.8- 10.8 Red Blood Count 4.63 10^6/uL 4.0-5.4 Hemoglobin 14.9 g/dL 12.0-16.0 Hematocrit 45 % 35-47 Mean Corpuscular Volume 97 fL 80-97 Mean Corpuscular Hemoglobin 32 pg High 27-31 Mean Corpuscular HGB Conc 33 g/dL 31-36 Red Cell Distribution Width 14 % 10.5-15 Abs Neutrophils 8.8 10^3/uL High 1.5-7.7 Abs Lymphocytes 2.1 10^3/uL 1.0-4.8 Abs Monocytes 0.9 10^3/uL High 0-0.8 Abs Eosinophils 0.8 10^3/uL High 0-0.6 Abs Basophils 0 10^3/uL 0-0.2 Abs Nucleated RBC 0 10^3/uL Granulocyte % 68.8 % 38-83 Lymphocyte % 16.9 % Low 25-47 Monocyte % 7.4 % 1-9 Eosinophil % 6.6 % High 0-6 Basophil % 0.3 % 0-2 Nucleated Red Blood Cells % 0 Laboratory test finding 06/27/2012 [facility] [place] Inr 0.91 0.87-0.97 Activated Partial Thrombo Time 30.1 sec 22.18-37.18 D Dimer Quantitative < 200 ng/mL Less Than 230 20 Laboratory test finding 10/31/2011 [facility] [place] Alt (SGPT) 18 U/L 14-54 Lipid Profile (Trig/Chol/HDL) 10/31/2011 [facility] [place] Triglyceride 238 mg/dL High 40-200 Cholesterol 137 mg/dL Less Than 200 21 High Density Lipoprotein 33 mg/dL Low 40-60 22 Cholesterol/HDL Ratio 4.15 AVERAGE 1-4.44 Low Density Lipoprotein 56 mg/dL Less Than 100 23 Lipid Profile (Trig/Chol/HDL) 07/10/2009 [facility] [place] Triglyceride 279 mg/dL High 40-200 Cholesterol 148 mg/dL Less Than 200 24 High Density Lipoprotein 32 mg/dL Low 40-60 25 Cholesterol/HDL Ratio 4.63 AVERAGE High 1-4.44 Low Density Lipoprotein 60 mg/dL Less Than 100 26 Laboratory test finding 07/10/2009 [facility] [place] Alt (SGPT) 18 U/L 14-54 Ast (Sgot) 22 U/L 12-42 Lipid Profile (Trig/Chol/HDL) 02/08/2008 [facility] [place] Triglyceride 243 mg/dL High 40-200 Cholesterol 140 mg/dL Less Than 200 27 High Density Lipoprotein 30 mg/dL Low 40-60 28 Cholesterol/HDL Ratio 4.67 AVERAGE High 1-4.44 Low Density Lipoprotein 61 mg/dL Less Than 100 29 Laboratory test finding 02/08/2008 [facility] [place] Alt (SGPT) 21 U/L 14-54 Ast (Sgot) 24 U/L 12-42 Laboratory test finding 05/01/2007 [facility] Flu A&B NEGATIVE Negative (607)- - Lipid Profile 07/23/2006 [facility] Cholesterol 138 mg/dL 120-200 HDL 21 mg/dL Low 30-85 Triglycerides 256 mg/dL High 30-200 HDL Risk Factor 6.5 CALC 4.2-7.0 LDL (Calculated) 65 CALC 0-129 VLDL (Calculated) 51 mg/dL High 0-50 Laboratory test finding 07/23/2006 [facility] Alt (SGPT) 21 U/L 7- 35 Ast (Sgot) 23 U/L 5-34 Laboratory test 07/09/2005 [facility] Labs LIPID See Image finding Report Laboratory test 03/27/2005 [facility] Labs LIPID;ALT;AST See Image finding Report Lipid Profile ([facility] [place]) 03/31/2003 [facility] [place] Triglyceride 343 mg/dL High 40-200 Cholesterol ([facility] [place]) 159 mg/dL <200 HDL-Chol 24 Low 40-60 Cholesterol / HDL Ratio 6.63 AVG High 1-4.44 LDL, Calculated ([facility] [place]) 66 <100 Laboratory test finding 03/31/2003 [facility] [place] Alt (SGPT) ([facility] [place]) 25 14-54 Ast (Sgot) ([facility]) 23 12-42 1 FASTING 2 Because ethnic data is not always readily available, this report includes an eGFR for both -Americans and non- Americans. The National Kidney Disease Education Program (NKDEP) does not endorse the use of the MDRD equation for patients that are not between the ages of 18 and 70, are , have extremes of body size, muscle mass, or nutritional status, or are non- or non-. According to the National Kidney Foundation, irrespective of diagnosis, the stage of the disease is based on the level of kidney function: Stage Description GFR(mL/min/1.73 m(2)) 1 Kidney damage with normal or decreased GFR 90 2 Kidney damage with mild decrease in GFR 60-89 3 Moderate decrease in GFR 30-59 4 Severe decrease in GFR 15-29 5 Kidney failure <15 (or dialysis) 3 Desirable <150 Borderline high 150-199 High 200-499 Very High >500 4 Desirable <200 Borderline high 200-239 High >239 5 Low <40 Desirable: 40-60 High: >60 6 Desirable <100 Near Optimal 100-129 Borderline high 130-159 High 160-189 Very High >189 7 FASTING 8 Verbal to KFOX by [id number] at 1102 on 02/20/13. Results read back accurately. 9 Reference ranges based on room air. 10 Please note the change in the INR reference range effective 13. 11 Please note the change in the PTT reference range effective 13. 12 Because ethnic data is not always readily available, this report includes an eGFR for both -Americans and non- Americans. The National Kidney Disease Education Program (NKDEP) does not endorse the use of the MDRD equation for patients that are not between the ages of 18 and 70, are , have extremes of body size, muscle mass, or nutritional status, or are non- or non-. According to the National Kidney Foundation, irrespective of diagnosis, the stage of the disease is based on the level of kidney function: Stage Description GFR(mL/min/1.73 m(2)) 1 Kidney damage with normal or decreased GFR 90 2 Kidney damage with mild decrease in GFR 60-89 3 Moderate decrease in GFR 30-59 4 Severe decrease in GFR 15-29 5 Kidney failure <15 (or dialysis) 13 Comment: b Comment: s 14 Reference Range and Interpretation: TnI (ng/mL) Interpretation Less Than 0.06 ng/mL Not supportive of diagnosis of VT 0.06 - 0.50 ng/mL Indeterminate: suggest serial studies if clinically indicated. Greater than 0.5 ng/mL Consistent with diagnosis of VT 15 Because ethnic data is not always readily available, this report includes an eGFR for both -Americans and non- Americans. The National Kidney Disease Education Program (NKDEP) does not endorse the use of the MDRD equation for patients that are not between the ages of 18 and 70, are , have extremes of body size, muscle mass, or nutritional status, or are non- or non-. According to the National Kidney Foundation, irrespective of diagnosis, the stage of the disease is based on the level of kidney function: Stage Description GFR(mL/min/1.73 m(2)) 1 Kidney damage with normal or decreased GFR 90 2 Kidney damage with mild decrease in GFR 60-89 3 Moderate decrease in GFR 30-59 4 Severe decrease in GFR 15-29 5 Kidney failure <15 (or dialysis) 16 Reference ranges based on room air. 17 Because ethnic data is not always readily available, this report includes an eGFR for both -Americans and non- Americans. The National Kidney Disease Education Program (NKDEP) does not endorse the use of the MDRD equation for patients that are not between the ages of 18 and 70, are , have extremes of body size, muscle mass, or nutritional status, or are non- or non-. According to the National Kidney Foundation, irrespective of diagnosis, the stage of the disease is based on the level of kidney function: Stage Description GFR(mL/min/1.73 m(2)) 1 Kidney damage with normal or decreased GFR 90 2 Kidney damage with mild decrease in GFR 60-89 3 Moderate decrease in GFR 30-59 4 Severe decrease in GFR 15-29 5 Kidney failure <15 (or dialysis) 18 Reference Range and Interpretation: TnI (ng/ml) Interpretation Less Than 0.06 ng/mL Not supportive of diagnosis of VT 0.06 - 0.50 ng/ml Indeterminate: suggest serial studies if clinically indicated. Greater than 0.5 ng/mL Consistent with diagnosis of VT 19 CKMB interpretation should be made in conjunction with clinical symptoms, patient history and EKG changes. 20 Please note: The following may produce a false positive D Dimer test: - Rheumatoid factor greater than 60 IU/ml - Plasma hemoglobin greater than 0.05 gm/dl - Bilirubin greater than 50 mg/dl - Lipids greater than 1000 mg/dl - FDP greater than 20 ug/ml 21 CHOLESTEROL INTERPRETATION: Desirable: Less than 200 MG/DL Borderline-High Risk: 200-239 MG/DL High-Risk: 240 MG/DL and over 22 HDL INTERPRETATION: Undesirable: High Risk: Less than 40 MG/DL Desirable: Low Risk: Greater than 60 MG/DL 23 LDL INTERPRETATION: Low Risk Optimal Level: LDL Less than 100 MG/DL Near or Above Optimal: LDL 100-129 MG/DL Borderline High Risk: LDL 130-159 MG/DL High Risk: LDL 160-189 MG/DL Very High Risk: LDL Greater than 189 MG/DL 24 CHOLESTEROL INTERPRETATION: Desirable: Less than 200 MG/DL Borderline-High Risk: 200-239 MG/DL High-Risk: 240 MG/DL and over 25 HDL INTERPRETATION: Undesirable: High Risk: Less than 40 MG/DL Desirable: Low Risk: Greater than 60 MG/DL 26 LDL INTERPRETATION: Low Risk Optimal Level: LDL Less than 100 MG/DL Near or Above Optimal: LDL 100-129 MG/DL Borderline High Risk: LDL 130-159 MG/DL High Risk: LDL 160-189 MG/DL Very High Risk: LDL Greater than 189 MG/DL 27 CHOLESTEROL INTERPRETATION: Desirable: Less than 200 MG/DL Borderline-High Risk: 200-239 MG/DL High-Risk: 240 MG/DL and over 28 HDL INTERPRETATION: Undesirable: High Risk: Less than 40 MG/DL Desirable: Low Risk: Greater than 60 MG/DL 29 LDL INTERPRETATION: Low Risk Optimal Level: LDL Less than 100 MG/DL Near or Above Optimal: LDL 100-129 MG/DL Borderline High Risk: LDL 130-159 MG/DL High Risk: LDL 160-189 MG/DL Very High Risk: LDL Greater than 189 MG/DL Procedures Date Code Description Status 08/09/2017 [id number] Mammogram Completed 03/14/2013 11351 Pulse Oximetry Completed 10/30/2012 36842 Pulse Oximetry Completed 08/14/2012 10417 Pulse Oximetry Completed 08/14/2012 43031 Nebulizer Treatment Completed 07/10/2012 45388 Pulse Oximetry Completed 06/24/2012 45211 Pulse Oximetry Completed 06/24/2012 99890 Nebulizer Treatment Completed 04/01/2008 81087 Nebulizer Treatment Completed 11/25/2000 23427 Electrocardiogram Interpretation & Report Only Completed 11/24/2000 35576 Electrocardiogram Interpretation & Report Only Completed 11/24/2000 47912 Electrocardiogram Interpretation & Report Only Completed Encounters Type Date Location Provider Dx Diagnosis Office Visit 10/23/2017 [facility] Office Heriberto Benson M54.9 Dorsalgia, 2:40p Jcarlos Galeas. unspecified M70.21 Olecranon bursitis, right elbow Office Visit 07/19/2017 3:45p [facility] Alise Del Cid J44.9 Chronic [employer] obstructive pulmonary disease, unspecified F41.9 Anxiety disorder, unspecified G47.00 Insomnia, unspecified Office Visit 11/02/2016 4:00p Main Office MADELAINE Duffy J44.9 Chronic obstructive pulmonary disease, unspecified S23.8xxA Sprain of other specified parts of thorax, initial encounter X50.1xxA Overexertion from prolonged static or awkward postures, init Office Visit 01/12/2016 1:00p Main Office MADELAINE Duffy J44.9 Chronic obstructive pulmonary disease, unspecified J30.9 Allergic rhinitis, unspecified F41.9 Anxiety disorder, unspecified G47.00 Insomnia, unspecified Z23 Encounter for immunization Office Visit 04/05/2015 12:15p Main Office MADELAINE Duffy J44.9 Chronic obstructive pulmonary disease, unspecified S23.3xxA Sprain of ligaments of thoracic spine, initial encounter Y93.89 Activity, other specified Office Visit 07/30/2014 2:15p [facility] Alise Del Cid, 847.1 Sprains & [employer] Strains Thoracic 496 COPD Airway Obstruction Chronic Not Class Elsewhere Office Visit 04/23/2014 1:00p [facility] Alise Del Cid, 496 COPD Airway [employer] Obstruction Chronic Not Class Elsewhere 477.9 Rhinitis Allergic Cause Unspec 300.00 Anxiety State Unspec Office Visit 10/20/2013 1:30p [facility] Alise Del Cid 496 COPD Airway [employer] Obstruction Chronic Not Class Elsewhere Office Visit 06/18/2013 11:00a Main Office Alise Del Cid, 477.9 Rhinitis Allergic [employer] Cause Unspec 496 COPD Airway Obstruction Chronic Not Class Elsewhere Office Visit 04/17/2013 7:45p Main Office Candace Kaye Nasopharyngitis Acute Isabel, [employer] Office Visit 03/14/2013 10:30a Main Office Alise Del Cid, 496 COPD Airway [employer] Obstruction Chronic Not Class Elsewhere Office Visit 10/30/2012 1:00p Main Office Alise Del Cid 496 COPD Airway [employer] Obstruction Chronic Not Class Elsewhere Office Visit 08/14/2012 11:30a Main Office Alise Del Cid, 496 COPD Airway [employer] Obstruction Chronic Not Class Elsewhere Office Visit 07/10/2012 9:30a Main Office [place]us Campo [place] COPD Airway [place] Tee Obstruction Chronic Not Class Elsewhere 785.9 Cardiovascular Symptoms Other Office Visit 06/24/2012 6:15p Main Office Alise Del Cid, 466.0 Bronchitis Acute [employer] Office Visit 11/06/2011 2:15p Main Office Alise Del Cid, 466.0 Bronchitis Acute [employer] Office Visit 12/21/2008 2:15p Main Office Alise Del Cid, 473.9 Sinusitis Chronic [employer] Unspec Office Visit 04/24/2008 10:45a Main Office Alise Del Cid, 724.3 Sciatica [employer] Office Visit 04/01/2008 4:00p [facility] Alise Del Cid, 724.3 Sciatica [employer] 466.0 Bronchitis Acute Office Visit 03/09/2008 4:00p Main Office SARITHA DuffyP 724.3 Sciatica V04.81 Need For Prophylactic Vaccination & Inoculation/Influenza Office Visit 02/21/2008 9:20a Main Office Mateus Campo 724.3 Sciaticdell Tee M.D. Office Visit 05/01/2007 2:15p Main Office Alise Del Cid, 466.0 Bronchitis Acute [employer] Office Visit 07/03/2006 4:30p [facility] Alise Del Cid, 466.0 Bronchitis Acute [employer] 780.52 Insomnia Unspecified 305.1 Tobacco Use Disorder Office Visit 09/19/2004 6:45p Main Office [place], 473.9 Sinusitis Chronic [employer] Unspec Office Visit 12/24/2002 4:10p Main Office Heriberto Benson 465.9 CORONA Galeas M.D. Respiratory Infections Acute Unspec Sites 692.9 Eczema NOS, Contact Dermatitis NOS Office Visit 05/27/2001 11:00a Main Office Heriberto Galeas M.D. Office Visit 04/17/2001 4:00p Main Office Heriberto Galeas M.D. Plan of Treatment 06/24/2018 - Amanda Reese, NPR41.0 Disorientation, [id number] Unspecified injury of head, initial encounterAllComments:Medication Management Patient Understands medications he 's taking? Yes No Are there Barriers to Adherence? Yes No Has the patient been asked about herbal supplements and therapies, andOTC meds? Yes No Care Plan1. Patient has been queried about patient's goals/preferences and functional/ lifestyle goals at relevant visits. If relevant, describe: na2. Treatment goals asexplained to the patient: above3. Are there barriers to meeting treatment goals? Yes No IfYes, please describe:4. Self-Management goals as described to the patient: Yes NoAs always, anjum encourage a healthy diet and making physical activity a part of your every day life. If youhave questions about how or where to start, please contact the office.Follow up:Please schedule a full annual visit at your earliest convenience Last appointment with MD: 09/2017 In order to be in compliance with [place] guidelines - we must see you in office every 6 months for a special review on any controlled substances. If you have not been seen in > 6 months, we may not refill your medication. patient due for med check
[2018-06-24 15:21] LABS: Hematocrit 35 % (33-41); Hemoglobin 12.1 g/dL (12.0-16.0); Mean Corpuscular HGB Conc 35 g/dL (31-36); Mean Corpuscular Hemoglobin 32 pg (27-31); Mean Corpuscular Volume 92 fL (80-97); Mean Platelet Volume 7.1 fL (7.4-10.4); Platelet Count 255 10^3/uL (150-450); Red Blood Count 3.81 10^6 /uL (3.70-4.87); Red Cell Distribution Width 16 % (10.5-15); White Blood Count 8.9 10^3/uL (3.5-10.8)
[2018-06-24 15:22] LABS: Urine Appearance Cloudy; Urine Bacteria Absent (Absent); Urine Bilirubin Negative (Negative); Urine Blood Negative (Negative); Urine Color Amber; Urine Glucose Negative (Negative); Urine Ketones Negative (Negative); Urine Nitrite Negative (Negative); Urine Protein Negative (Negative); Urine Red Blood Cell 1+(3-5/hpf) (Absent); Urine Specific Gravity 1.023 (1.010-1.030); Urine Squamous Epithelial Cell Present (Absent); Urine Transitional Epithelial Present (Absent); Urine Urobilinogen Negative (Negative); Urine White Blood Cell 1+(6-10/hpf) (Absent)
[2018-06-24 15:32] LABS: ALT 25 U/L (7-52); AST 22 U/L (13-39); Albumin 3.7 g/dL (3.2-5.2); Albumin/Globulin Ratio 1.4 (1-3); Alkaline Phosphatase 93 U/L (34-104); Anion Gap 13 mmol/L (2-11); BUN/Creatinine Ratio 21.1 (8-20); Blood Urea Nitrogen 20 mg/dL (6-24); CO2 Carbon Dioxide 31 mmol/L (22-32); Calcium 9.2 mg/dL (8.6-10.3); Chloride 92 mmol/L (101-111); EGFR African American 70.2 (>60); Globulin 2.6 g/dL (2-4); Glucose 164 mg/dL (70-100); Potassium 3.2 mmol/L (3.5-5.0); Sodium 136 mmol/L (135-145); Total Protein 6.3 g/dL (6.4-8.9)
[2018-06-24 15:33] LABS: Troponin I 0.03 ng/mL (<0.04)
[2018-06-24] MEDS ORDERED: ED cefTRIAXone 1 GM/50 ML 1 GM/50 ML PREMIX.SET IVPB ONE (15:34)
[2018-06-24] MEDS ORDERED: cefTRIAXone(*) 1 GM in NS 0.9% 50 ML* 50 ML IVPB ONE (16:00)
[2018-06-24] MEDS: NS 0.9% 1000 ML** 2,000 ML IV ONE (16:17)
[2018-06-24 16:22] LABS: ABS Basophils 0 10^3/ul (0-0.2); ABS Eosinophils 0 10^3/ul (0-0.6); ABS Lymphocytes 0.7 10^3/ul (1.0-4.8); ABS Monocytes 0.3 10^3/ul (0-0.8); ABS Neutrophils 7.9 10^3/ul (1.5-7.7); ABS Nucleated RBC 0 10^3/ul; Eosinophil % 0 %; Lymphocyte % 7.8 %; Nucleated Red Blood Cells % 0.3
[2018-06-24 16:23] LABS: Alcohol < 10 mg/dL (<10)
[2018-06-24 16:28] LABS: TSH (Thyroid Stimulating Horm) 1.52 mcIU/mL (0.34-5.60)
[2018-06-24] MEDS ORDERED: Albuterol 2.5 MG/3 ML NEB.SOL* (0.083%) INH ONE (17:27)
[2018-06-24] MEDS ORDERED: Tiotropium CAP.INH* CAP.INH/18 MCG (USE ORDER SET !) INH PRN (17:51)
[2018-06-24] MEDS ORDERED: Mometasone/Formoter 200/5 MDI INH PRN (17:51)
[2018-06-24 18:11] LABS: Acetaminophen < 15 mcg/mL; Salicylate < 2.50 mg/dL (<30)
[2018-06-24 18:31] LABS: Barbiturates Urine Screen None Detected (None Detect); Benzodiazepine Urine Screen None Detected (None Detect); Urine Cannabinoids Screen None Detected (None Detect)
[2018-06-24] MEDS ORDERED: NS 0.9% 1000 ML** 1,000 ML IV ONE (18:54)
[2018-06-24] MEDS: Enoxaparin(*) 40 MG/0.4 ML SYR SUBCUT SCH (19:53)
[2018-06-24] MEDS: KCL 20 MEQ/100 ML IVPREMIX* 20 MEQ/100 ML BAG IV SCH ×2 (19:53→23:06)
[2018-06-24] MEDS: Metoprolol Tartrate TAB* 50 mg PO SCH (20:50)
[2018-06-24] MEDS: Albuterol/Ipratropium NEB.SOL* Albuterol 2.5 MG/Ipratropium 0.5 MG 3 ML INH PRN (21:15)
--- NOTE | 2018-06-24 21:38 | HP ---
CC: Heriberto Galeas MD * HISTORY AND PHYSICAL: DATE OF ADMISSION: 06/24/18 PRIMARY CARE PROVIDER: Heriberto Galeas MD ATTENDING PHYSICIAN: Gavino Mcrae MD * (dictated by DERECK Grimm) CHIEF COMPLAINT: Confusion. HISTORY OF PRESENT ILLNESS: Ms. Sarah is a 73-year-old female with a past medical history of COPD, hypertension, hyperlipidemia, myocardial infarction in 2000 and anxiety who presents today with a chief complaint of 6 weeks of confusion. Her son and daughter relay this information as the patient feels that she is not confused or does not recognize that she is confused. They note that her recent history includes 1 fall on 03/26/18 where she fell backwards off of a stool and hit her head as well as a fall 2 weeks ago due to loss of traction, where she slipped and fell. There was no loss of consciousness with either of the falls. The patient states that she feels "fuzzy" but does not feel dizzy, presyncopal, lightheaded. This is the first time she has sought medical attention for these falls. It is also noted that the patient was hospitalized in [place] approximately 6 weeks ago. The family believes that the confusion had started shortly after that. They described an unfamiliarity with the house she lives in, stating she wants to rearrange the rooms and she does not know where certain objects or rooms are. Her states that Ms. Sarah occasionally calls him by her first 's name adding that they have been for 40 to 50 years. He also describes her asking him to go to areas of the house that are nonexistent. The family notes that the patient has occasional hallucinated at times, stating that she sees bugs that aren't there. At the current time, the patient denies confusion, feeling "fuzzy," or hallucinations. She denies chest pain, shortness of breath, abdominal pain. She denies palpitations, headaches, dizziness, presyncope, nausea, vomiting, or diarrhea. She is noted to have some tremors of the head and hands, which she states she has had for a long time. She states that this occurs when she is cold, which is frequently. She has no urinary symptoms, but does feel that she has been urinating more frequently at night. She also notes that she was constipated for a couple of days, but that has resolved. The patient states that she is feeling quite emotional today. She states that she is upset that her family has to see her in the hospital, but denies any other emotional concerns including anxiety or depression. While in the emergency room, a full workup was completed. A head CT and a chest x-ray showed no acute pathology. The patient was noted to be hypokalemic with a lactic acidosis. The patient has 1+ leukocyte esterase in the urine. The hospitalist team was asked to evaluate the patient for admission. PAST MEDICAL HISTORY: 1. Hypertension. 2. Systolic heart failure. 3. History of OH in 2000. 4. Hyperlipidemia. 5. Chronic obstructive pulmonary disease, chronic bronchitis. PAST SURGICAL HISTORY: 1. Hysterectomy. 2. Right cyst removal from right breast x2, cysts were benign. HOME MEDICATIONS: 1. Prednisone 10 mg p.o. daily. 2. Lunesta 2 mg p.o. daily. 3. Alprazolam 0.25 mg p.o. b.i.d. 4. Furosemide 40 mg p.o. daily. 5. Cranberry concentrate 1 cap p.o. daily. 6. Potassium 99 mg p.o. daily. 7. Multivitamin/minerals 1 tab p.o. daily. 8. Aspirin 81 mg p.o. daily. 9. Montelukast sodium 10 mg p.o. daily. 10. Albuterol/ipratropium 1 neb inhalation q.4 hours p.r.n. 11. Nitroglycerin 0.4 mg sublingual q.5 minutes p.r.n. 12. Symbicort 1 puff inhalation b.i.d. p.r.n. 13. Metoprolol tartrate 50 mg p.o. b.i.d. 14. Simvastatin 20 mg p.o. daily. ALLERGIES: PENICILLINS. FAMILY HISTORY: The patient states mom has a cardiac history, had an OH. No history of cancer. Father had diabetes. SOCIAL HISTORY: The patient is a former smoker. She quit in 2000. She smoked 3 quarters of a pack per day for approximately 19 years. The patient states she never uses alcohol or drugs. 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 In the event that she is unable to make her own medical decisions, she appoints her , Lebron Sarah, phone number is to make decisions on her behalf. REVIEW OF SYSTEMS: A 10-point review of systems was performed and all the pertinent positives and negatives are in the HPI. PHYSICAL EXAMINATION GENERAL: Ms. Sarah is a well-developed, well-nourished older white woman who is sitting up in bed. She is tearful at times, but is in no acute distress. VITAL SIGNS: Temperature 97.9 temporally, heart rate 94, respiratory rate 18, oxygen saturation 93% on room air, blood pressure 137/80. HEENT: Her visual mosher are grossly intact. Pupils are equally round and reactive to light. Extraocular movements are intact. Sclerae without icterus. There is a small amount of periorbital edema; the patient states this is because she has been crying. She appears to have some degree of proptosis. Hearing is grossly intact. The patient has dentures. Oral mucous membranes are moist. There are no lesions. Pharynx is clear. NECK: Full range of motion. Nontender to palpation. Thyroid is not palpable. The trachea is at midline. There is no lymphadenopathy. RESPIRATORY: Symmetrical chest expansion without use of the accessory muscles. Lungs are clear to auscultation without rhonchi, wheezes, or rubs. CARDIOVASCULAR: The patient has an irregular rhythm, tachycardic. S1, S2 present without murmurs, rubs or gallops. There is no JVD. ABDOMEN: Bowel sounds in all quadrants. Abdomen is soft and nontender to palpation. There is no hepatosplenomegaly. EXTREMITIES: Skin is warm and smooth bilaterally. There is no edema, clubbing , or cyanosis. Radial and pedal pulses are palpable. The patient has ecchymosis on both upper and lower extremities. NEURO: The patient is awake. She is alert and oriented. She is able to move all of her extremities. Her motor strength in bilateral upper and lower extremities is 5/5. DIAGNOSTIC STUDIES/LAB DATA: Brain CT on 06/24/18, impression: No intracranial masses or hemorrhages noted. Chronic ischemic white matter change is noted. Chest x-ray on 06/24/18, impression: Stigmata of obstructive lung disease, no acute pulmonary or cardiac process evident. Electrocardiogram for 06/24/18: Sinus tachycardia with irregular rate, ventricular rate 72 to 134. WBC 8.9, RBC 3.81, HGB 12.1, HCT 35, platelets 255,000. Sodium 136, potassium 3.2, chloride 92, carbon dioxide 13, BUN 20, creatinine 0.95. Lactic acid 4.0, repeat lactic acid 2.4. AST 22, ALT 25, alk phos 93. Ammonia 32. Troponin 0.03. TSH 1.52. ASSESSMENT AND PLAN: Ms. Sarah is a 73-year-old female with a past medical history as described above who presented to the ER today with complaints of 6 weeks of confusion. The patient will be admitted observation for the followin. Confusion. Etiology is unknown. The patient has lactic acidosis and tachycardia, so infection is possible. She denies fever or cough. Therefore, considering 2+ leukocyte esterase in urine sample, urinary tract infection is possible and most likely at this point. The patient was given 1 dose of ceftriaxone in the ER. Urine culture was sent and is pending. Consider continuation of ceftriaxone. The patient's TSH was within normal levels. The patient states she takes Xanax. She states she does not take it every day. The medication will be held for the time being as it could cause or be contributing to altered mentation. [place] is on the patient's med list, but she states that she does not take this medication nor does she have a prescription for it. It is noted that the patient takes 10 mg of prednisone daily for a number of years now. It is unknown why, but she states it is because of her COPD. We will request records from Dr. Galeas to get more information on this. Due to history of falls, it is still likely that the patient may have a bleed or a stroke. Her neuro exam showed no focal neurological deficits, but an MRI is ordered. 2. Lactic acidosis. The patient came in with a lactic acid of 4.0. She was given 2 L of fluid in the ER as well as a dose of ceftriaxone. Lactic acid was then repeated and was shown to be 2.4. An additional 1 L of fluid bolus was ordered as there is concern for fluid overload in the setting of systolic heart failure. Repeat lactic acid ordered. 3. Tachycardia. The patient has tachycardia with the lactic acidosis. EKG is concerning for multifocal atrial tachycardia. If tachycardia persists after resolution of lactic acidosis and treatment of possible infection, consider cardiac consult. The patient will be placed on telemetry. 4. Hypokalemia. Potassium was found to be 3.2. The patient will be given 20 mEq potassium chloride IV x3. 5. Systolic heart failure, not in acute exacerbation. Continue home medications, metoprolol 50 b.i.d., furosemide 40 daily, and potassium. 6. Chronic obstructive pulmonary disease. Continue Symbicort, DuoNeb, and prednisone. Records requested from PCP regarding prednisone dosage and length of treatment, which patient believes is for COPD. 7. Hyperlipidemia. Continue simvastatin. Continue aspirin. 8. DVT prophylaxis. The patient scored a 3 on the DVT Risk Assessment placing her at high risk. She will be placed on Lovenox 40 subcu q.24 hours. TIME SPENT: Approximately 75 minutes were spent on this admission, greater than half of that time was spent with the patient and her family members obtaining a history, performing a physical, and reviewing the plan of care. This case has been reviewed with my attending, Dr. Mcrae, who is in agreement with the plan of care. DERECK HILLMAN [id number]/[facility] #: [id number] MTDD
[2018-06-25] MEDS: Albuterol/Ipratropium NEB.SOL* Albuterol 2.5 MG/Ipratropium 0.5 MG 3 ML INH PRN ×4 (00:35→15:38)
[2018-06-25] MEDS: KCL 20 MEQ/100 ML IVPREMIX* 20 MEQ/100 ML BAG IV SCH (02:23)
[2018-06-25] MEDS ORDERED: cefTRIAXone(*) 1 GM in NS 0.9% 50 ML* 50 ML IVPB SCH (08:00)
[2018-06-25] MEDS: Metoprolol Tartrate TAB* 50 mg PO SCH (08:17)
[2018-06-25] MEDS ORDERED: Aspirin EC TAB* 81 MG TAB.EC PO SCH (09:00)
[2018-06-25] MEDS ORDERED: Atorvastatin* 10 MG TAB PO SCH (09:00)
[2018-06-25] MEDS ORDERED: Multivitamins/Minerals TAB PO SCH (09:00)
[2018-06-25] MEDS ORDERED: predniSONE TAB* 10 MG PO SCH (09:00)
[2018-06-25] MEDS ORDERED: Furosemide TAB* 40 MG PO SCH (09:00)
[2018-06-25] MEDS ORDERED: Montelukast Sodium TAB* 10 MG PO SCH (09:00)
[2018-06-25 09:11] LABS: Hematocrit 34 % (33-41); Hemoglobin 10.8 g/dL (12.0-16.0); Mean Corpuscular HGB Conc 32 g/dL (31-36); Mean Corpuscular Hemoglobin 31 pg (27-31); Mean Corpuscular Volume 98 fL (80-97); Mean Platelet Volume 6.8 fL (7.4-10.4); Platelet Count 216 10^3/uL (150-450); Red Blood Count 3.43 10^6 /uL (3.70-4.87); Red Cell Distribution Width 17 % (10.5-15); White Blood Count 6.3 10^3/uL (3.5-10.8)
--- NOTE | 2018-06-25 09:26 | PN ---
Subjective Date of Service: 06/25/18 Interval History: Patient reports feeling tired and cold this morning. She typically uses 3L O2 via NC at home. She denies chest pain, palpitations, dyspnea, dysuria, abd pain , fevers. Objective Active Medications: Albuterol/Ipratropium (Duoneb (Albuterol 2.5 Mg/Ipratropium 0.5 Mg)) 1 neb INH Q4H PRN PRN Reason: SOB/WHEEZING Last Admin: 06/25/18 06:14 Dose: 1 neb Aspirin (Aspirin Ec Tab*) 81 mg PO DAILY [facility] Last Admin: 06/25/18 08:17 Dose: 81 mg Atorvastatin Calcium (Lipitor*) 10 mg PO DAILY [facility] Last Admin: 06/25/18 08:17 Dose: 10 mg Enoxaparin Sodium (Lovenox(*)) 40 mg SUBCUT Q24H [facility] Last Admin: 06/24/18 19:53 Dose: 40 mg Furosemide (Lasix Tab*) 40 mg PO DAILY [facility] Last Admin: 06/25/18 08:17 Dose: 40 mg Ceftriaxone Sodium 1 gm/ (Sodium Chloride) 50 mls @ 200 mls/hr IVPB Q24H [facility] Last Admin: 06/25/18 08:17 Dose: 200 mls/hr Metoprolol Tartrate (Lopressor Tab*) 50 mg PO BID [facility] Last Admin: 06/25/18 08:17 Dose: 50 mg Mometasone Furoate/Formoterol Fumar (Dulera 200/5 Mdi*) 1 puff INH BID PRN; Protocol PRN Reason: SHORTNESS OF BREATH Montelukast Sodium (Singulair Tab*) 10 mg PO DAILY [facility] Last Admin: 06/25/18 08:17 Dose: 10 mg Multivitamins/Minerals (Theragran/Minerals Tab*) 1 tab PO DAILY [facility] Last Admin: 06/25/18 08:17 Dose: 1 tab Prednisone (Deltasone Tab*) 10 mg PO DAILY [facility] Last Admin: 06/25/18 08:17 Dose: 10 mg Vital Signs - 8 hr 06/25/18 06/25/18 06/25/18 03:31 06:15 07:25 Temperature 97.2 F 97.9 F Pulse Rate 81 96 95 Respiratory 18 24 16 Rate Blood Pressure 105/51 107/58 (mmHg) O2 Sat by Pulse 99 99 98 Oximetry Oxygen Devices in Use Now: Nasal Cannula - 2L Appearance: Patient laying in hospital bed comfortably, appearing in NAD; face is round Eyes: No Scleral Icterus, PERRLA, - - edema to periorbital regions bilaterally without erythema Ears/Nose/Mouth/Throat: Mucous Membranes Moist Neck: NL Appearance and Movements; NL JVP Respiratory: Symmetrical Chest Expansion and Respiratory Effort, Clear to Auscultation Cardiovascular: - - regular rate, irregular rhythm; no murmurs/rubs appreciated Abdominal: - - abdomen round, soft, nontender, nondistended Extremities: No Edema, No Clubbing, Cyanosis, - - extremities are thin with apparent muscle wasting Skin: - - ecchymosis throughout, skin is warm and dry Neurological: Alert and Oriented x 3 Result Diagrams: 06/25/18 08:39 06/25/18 08:39 Assess/Plan/Problems-Billing Assessment: 73 yo female with PMHx CAD, COPD, systolic CHF, HTN is brought to the ED at the request of her family for confusion x 6 months - Patient Problems (1) Confusion Code(s): R41.0 - DISORIENTATION, UNSPECIFIED SNOMED Code(s): 454537825 Comment: -pt has been confused at home x 6 weeks per ; patient is alert and oriented at time of exam -brain CT and MRI without intracranial abnormality -possibly due to sepsis as discussed below, though unlikely to continue for 6 weeks without more advanced end-organ damange; Cr, bili, plt count wnl; no acute on chronic respiratory failure -possibly related to chronic oral steroid use which is apparently taken for COPD -possibly related to polypharmacy; pt prescribed lunesta, norco, and xanax -checking b12, rpr, and consulting neurology (2) Sepsis Comment: -likely secondary to UTI; urinalysis with positive leukocyte esteras -lactic acid 4.0 at admission --> 1.5 overnight -pt tachypnic and tachycardic in ED on day of admission -pt has received 3 L NS -awaiting urine and blood cultures -continue ceftriaxone (3) Tachycardia Code(s): R00.0 - TACHYCARDIA, UNSPECIFIED SNOMED Code(s): 0716608 Comment: -pt on telemetry, continues to demonstrate multifocal atrial tachycardia; pt is asymptomatic -possibly related to hypokalemia which was found on admission, will continue to monitor with bmp -possibly related to sepsis or chronic oral steroid use (4) Systolic CHF Code(s): I50.20 - UNSPECIFIED SYSTOLIC (CONGESTIVE) HEART FAILURE SNOMED Code( s): 622763631 Comment: -continue home metoprolol and po lasix -pt uses 3L o2 at home, using 2L today -pt is not prescribed an BALJIT-I (5) CAD (coronary artery disease) Code(s): I25.10 - ATHSCL HEART DISEASE OF [place] CORONARY ARTERY W/O ANG PCTRS SNOMED Code(s): 23121136 Comment: -continue home metoprolol, ASA, lipitor (6) COPD (chronic obstructive pulmonary disease) Code(s): J44.9 - CHRONIC OBSTRUCTIVE PULMONARY DISEASE, UNSPECIFIED SNOMED Code(s): 97598297 Comment: -continue home singulair, dulera, prn duonebs -tapering prednisone? (7) HTN (hypertension) Code(s): I10 - ESSENTIAL (PRIMARY) HYPERTENSION SNOMED Code(s): 82839049 Comment: -continue home metoprolol and lasix -pt has not been hypertensive (8) Full code status Code(s): Z78.9 - OTHER SPECIFIED HEALTH STATUS SNOMED Code(s): 129216939 (9) DVT prophylaxis Code(s): ZVM8283 - SNOMED Code(s): 520348085 Comment: -continue lovenox
[2018-06-25 09:42] LABS: BUN/Creatinine Ratio 18.5 (8-20); Calcium 7.9 mg/dL (8.6-10.3); EGFR African American 108.7 (>60); EGFR Non-African American 89.9 (>60); Potassium 3.2 mmol/L (3.5-5.0)
[2018-06-25 10:39] LABS: Lymphocytes % 13 %; Metamyelocytes % 3 % (0-2); Monocytes % 1 %; Neutrophil % 76 %
[2018-06-25 10:40] LABS: Immature Granulocytes 10 % (0-9); Myelocytes % 3 % (0-1)
[2018-06-25 10:41] LABS: ABS Neutrophils 5.4 10^3/ul (1.5-7.7)
[2018-06-25] MEDS: KCL 10 MEQ/50 ML IVPREMIX* 10 MEQ/50 ML BAG IV SCH ×3 (10:59→13:59)
--- NOTE | 2018-06-25 16:59 | PN ---
Hospitalist Progress Note Date of Service: 06/25/18 HOSPITALIST ADDENDUM Case reviewed and d/w Ivone HARDEN> Mrs Sarah is a 73yo F with PMH of severe COPD on home O2, Takotsubo CMP vs viral myocarditis with EF 40-45%, HLD, anxiety who was brought in by family due to confusion. Patient is pleasant but cannot provide meaningful history and family is not present at this time. As per HPI she has had progressive cognitive decline since March 26 when she sustained a fall, worsened over the past 6 weeks, after an admission to [facility] for COPD exacerbation. Selected Entries 06/25/18 06/25/18 06/25/18 07:25 11:38 15:39 Temperature 97.9 F Pulse Rate 72 Respiratory 18 Rate Blood Pressure 107/58 (mmHg) O2 Sat by Pulse 94 Oximetry Oxygen Flow 3 Rate CVS: normal S1 and S2, irregular Chest: BS+ bilaterally diminished, no added sounds Abd: soft, NT, BS+ Neuro: sleeping, easily arousable, pleasantly confused, LUCERO Laboratory Tests 06/25/18 06/25/18 06/25/18 00:50 08:39 08:39 WBC 6.3 Hgb 10.8 L Hct 34 MCV 98 H Immature Gran % 10 H Metamyelocytes % 3 H Myelocytes % 3 H Sodium 142 Potassium 3.2 L Chloride 106 Carbon Dioxide 30 Anion Gap 6 BUN 12 Creatinine 0.65 Glucose 93 Lactic Acid 1.5 Calcium 7.9 L A/P: Subacute, progressive cognitive decline / Sepsis secondary to possible UTI 1. Sepsis secondary to possible UTI - No urinary complaints, but UA is abnormal, LA was elevated (now normalized), and CBC with left shift/bandemia. Will continue Ceftriaxone empirically and follow cultures. 2. Subacute progressive cognitive decline - As per family, has had symptoms since March 26 after a fall, worsened after admission to [facility] for COPD exacerbation. - On steroids chronically since 2012. - TSH 1.52. - CBC shows macrocytosis and RDW elevation - will check B12 and Folate. - Check RPR. - PAIN COORDINATOR imaging did not show acute pathology. - Partial seizures on the differential. - Neurology consultation requested - recommended elective LP - will arrange.
[2018-06-25] MEDS: Enoxaparin(*) 40 MG/0.4 ML SYR SUBCUT SCH (17:21)
[2018-06-25 18:23] VITALS: BP 121/65
--- NOTE | 2018-06-26 03:12 | DS ---
CC: Dr. Galeas.* DISCHARGE SUMMARY ADDENDUM: PRIMARY CARE PROVIDER: Dr. Galeas. DATE OF ADMISSION: 06/24/18 DATE OF DISCHARGE AGAINST MEDICAL ADVICE: 06/25/18 SUMMARY: Mrs. Sarah is a 73-year-old lady with a past medical history of severe COPD on home O2, takotsubo cardiomyopathy versus viral myocarditis with ejection fraction of 40% to 45%, hyperlipidemia, anxiety who was brought in by family due to confusion. The patient was evaluated earlier by me. She was pleasant but could not provide meaningful history and when I saw her initially family was not present. We HPI. The patient has had progressive cognitive decline since 03/26/18 when she sustained a fall and this has worsened over the past 6 weeks especially after an admission to [facility] for COPD exacerbation. The case was reviewed and discussed with Ivone Arevalo, physician cafe assistant. The patient was examined at bedside and the impression was that the patient had subacute progressive cognitive decline of unclear etiology. The case had been discussed with Neurology (Dr. Saucedo) and the plan was for the patient to have vitamin B12, folate, and RPR levels checked; EEG to rule out partial seizures; and also LP to check for Herpes simplex virus, enterovirus, VDRL, cryptococcus, BALJIT level, Lyme disease, and cytology. There was also concern for sepsis secondary to possible urinary tract infection as the patient had lactic acidosis on admission and also CBC with bandemia. She was receiving ceftriaxone while in the hospital and cultures show no growth to date. Around 6 p.m., I was called to the bedside because the patient was upset and wanted to leave against medical advice. The patient is alert, awake, and oriented x3 but does not seem to have insight to her condition, so I did not think she could sign against medical advice by herself but at that time her was present at bedside and he is her surrogate decision maker. I did explain to the in plain words that I think the patient has cognitive decline of unclear etiology at this time and I do not think she understands what is happening so I was appealing to him to try and convince her to stay in the hospital longer, so we could continue her workup. I talked about my conversation with the neurologist and the plan to have the above-mentioned tests performed. I also explained my concern about the possibility of an infection probably a urinary tract infection with her laboratory changes as described above. The patient's verbalized understanding and he states that at that point he would take the patient home because she did not want to be "poked anymore." I explained at this time she does not have a clear diagnosis and I am concerned that whatever it is going on with her will continue to progress may cause permanent disability or even . The patient' s verbalized understanding of my explanation and he states that he will take her home and follow up with her primary care provider. I did tell him that they can return to the emergency room at any time if he feels that she is getting worse and we could continue her workup in the hospital ; otherwise, if he goes to see to provider, they could try to make arrangements to have this workup including the neurology evaluation done as outpatient. I made it very clear since her diagnoses are still unclear that it is difficult for me to give him a clear prognosis that I am concerned enough with her condition that I will prefer that she stay in the hospital to complete this workup. I did offer the option of staying a little longer so that she could have her discharge instructions and also we could talk about antibiotics. I think she should take as outpatient for her possible UTI, but they refused to wait. In any case, we will send prescriptions for cefuroxime to [facility] in [place], so the patient could be treated at least until her culture results come back confirming or ruling out urinary tract infection. An against medical form was filled up and signed with . The patient being discharged against medical advice at this time. PHYSICAL EXAMINATION: Vital Signs: Temperature of 97.7, heart rate is 74, respiratory rate is 16, oxygen saturation is 95% on 3 L, blood pressure is 121/ 65. General: She is an elderly lady, appears older than stated age, cachectic but with cushingoid body habitus. CVS: Normal S1, S2. Irregular. Chest: Breath sounds bilaterally diminished. Neuro: She is alert, awake, and oriented x3 but needs reminders by her . She is able to move all 4 extremities. If the patient goes to follow up with her primary care provider, I believe her COPD would be enough to justify a palliative care evaluation as this seems to be very advanced and she is cachectic. Please keep in mind this a summarized version of the hospital events. This is an addendum to her discharge summary by DERECK Holden. If you any questions, please do not hesitate to call me at [phone] or please obtain the full medical records. [id number]/[facility] #: [id number] MTDD
--- NOTE | 2018-06-26 03:45 | DS ---
ATTENDING PHYSICIAN ADDENDUM NOW INCLUDED ON THIS REPORT CC: Dr. Galeas * DISCHARGE SUMMARY: DATE OF ADMISSION: 06/24/18 DATE OF DISCHARGE: 06/25/18, discharge is against medical advice. PRIMARY CARE PROVIDER: Dr. Galeas. PROVIDER: DERECK Holden ATTENDING PHYSICIAN: Dr. Tonia Huddleston * (dictated by DERECK Holden). STUDIES: Brain CT on 06/24/18, impression: "No intracranial mass or hemorrhage is noted , chronic ischemic white matter change is noted." Brain MRI on 06/24/18, impression: "No acute intracranial abnormality. Age- related atrophy and mild to moderate chronic small vessel ischemic disease." EKG, 06/24/18, rhythm is irregularly irregular, rate is 108 beats per minute. Rhythm is consistent with multifocal atrial tachycardia with multiple P-wave varieties present. The patient has normal axis, no ischemic changes. EKG on 06/25/18, rhythm is irregular, consistent with atrial bigeminy. Rate is 90 beats per minute. Wilcox is normal. No ischemic changes. PRIMARY DIAGNOSES: 1. Subacute cognitive decline. 2. Sepsis secondary to urinary tract infection. 3. Atrial bigeminy. SECONDARY DIAGNOSES: 1. Chronic obstructive pulmonary disease. 2. Coronary artery disease. 3. Hypertension. 4. Hyperlipidemia. 5. Systolic congestive heart failure. DISCHARGE MEDICATIONS: New Discharge Medications: None, declined. Home Medications: 1. Prednisone 10 mg p.o. daily. 2. Lunesta 2 mg p.o. daily. 3. [place] 5/325 one tab p.o. q.6 p.r.n. back pain. 4. Xanax 0.25 mg p.o. b.i.d. p.r.n. 5. Lasix 40 mg p.o. daily. 6. Cranberry concentrate 1 cap p.o. daily. 7. Potassium 99 mg p.o. daily. 8. Multivitamin 1 tab p.o. daily. 9. Aspirin 81 mg p.o. daily. 10. Singulair 10 mg p.o. daily. 11. DuoNeb 1 neb inhaled q.4 hours p.r.n. wheezing. 12. Spiriva 1 cap inhaled daily. 13. Nitroglycerin 0.4 mg sublingual q.5 minutes p.r.n. chest pain. 14. Symbicort 1 puff inhaled b.i.d. p.r.n. 15. Metoprolol 50 mg p.o. b.i.d. 16. Simvastatin 20 mg p.o. daily. HISTORY OF PRESENT ILLNESS/HOSPITAL COURSE: Ivania Sarah is a 73-year-old white female with past medical history of COPD, CAD, hypertension, systolic CHF , who presents to emergency department with her family, on recommendation of her primary care office, complaining of the patient's confusion that has worsened in the last 6 weeks. The patient's family reports that she began having confusion since after a fall on 03/26/18. She has become increasingly confused at home for the last 6 weeks. For example, she is referring to her by the name of her ex- and thinking there are stairs in her home when there are not. On admission, the patient did have tachycardia and tachypnea in the emergency department with a urinalysis with positive leukocyte esterase. This is consistent with sepsis and she was started on empiric IV ceftriaxone. Additionally, she had multifocal atrial tachycardia at admission. She had hypokalemia which is a possible cause, though her sepsis may also be a possible cause. Her hypokalemia was addressed with IV potassium chloride. Her hypokalemia did not improve and again was replaced with additional potassium chloride IV. As for her confusion, her cortisol was low which was consistent with her chronically taking oral prednisone. Her TSH was within normal limits. Her etiology of her confusion is possibly related to underlying infection, though a neurology consult was planned for 06/27/18. Neurology suggested an EEG to rule out partial seizures and lumbar puncture to rule out HSV and cryptococcus. The patient did not want to stay for testing or to see neurology in the morning. The patient does not have capacity to make decisions , though her is her healthcare proxy and he decided to help her leave the hospital. It was explained that it was recommended to have the testing of lumbar puncture and EEG and to wait to see the neurologist. It was also explained that it is recommended to continue treatment of the UTI and hypokalemia. It was explained by leaving against medical advice, the patient does have a risk of progression of disease, disability, or . Nonetheless, the remained with his intention to have his leave hospital. During her stay, her home medicine for her COPD was continued, which includes oral prednisone, montelukast, and Dulera. Her treatment for her CAD was continued, which included Lipitor, metoprolol, aspirin. For treatment of her systolic CHF, her home Lasix was continued. REVIEW OF SYSTEMS: For history and her review of systems for today, please see the progress note from today. PHYSICAL EXAMINATION: Please see the progress note from today. DISCHARGE PLAN: It was explained to the patient and her that if she would like to return to the hospital for the testing that they did not want to complete during this hospitalization, they are welcome to return to the hospital. It is recommended that they follow up with their primary care provider regarding continuing treatment for her UTI so that sepsis does not progress. It is also recommended that her PCP repeat a BMP and EKG. Diet: It is recommended that the patient return to heart healthy diet. Activity: It is recommended the patient return to her normal activity as tolerated. Again, this patient does not have a capacity to make decisions, though her has decided to have the patient leave against medical advice. I have discussed the need for lumbar puncture and EEG to the patient and her and nonetheless, the has so decided to forgo treatment. The patient is not willing to undergo lumbar puncture and is unwilling to stay overnight for neurology consult in the morning. PATIENT CONDITION: Guarded. TIME SPENT ON THIS DISCHARGE: Approximately 45 minutes was spent on this discharge; approximately half of this was spent at bedside explaining the risk of leaving against medical advice to the patient and her health care proxy, her . DERECK HOLDEN DISCHARGE SUMMARY ADDENDUM: PRIMARY CARE PROVIDER: Dr. Galeas. DATE OF ADMISSION: 06/24/18 DATE OF DISCHARGE AGAINST MEDICAL ADVICE: 06/25/18 SUMMARY: Mrs. Sarah is a 73-year-old lady with a past medical history of severe COPD on home O2, takotsubo cardiomyopathy versus viral myocarditis with ejection fraction of 40% to 45%, hyperlipidemia, anxiety who was brought in by family due to confusion. The patient was evaluated earlier by me. She was pleasant but could not provide meaningful history and when I saw her initially family was not present. We discussed the HPI. The patient has had progressive cognitive decline since 03/26/18 when she sustained a fall and this has worsened over the past 6 weeks especially after an admission to [facility] for COPD exacerbation. The case was reviewed and discussed with Ivone Arevalo, physician social research assistant. The patient was examined at bedside and the impression was that the patient had subacute progressive cognitive decline of unclear etiology. The case had been discussed with Neurology (Dr. Saucedo) and the plan was for the patient to have vitamin B12, folate, and RPR levels checked; EEG to rule out partial seizures; and also LP to check for Herpes simplex virus, enterovirus, VDRL, cryptococcus, BALJIT level, Lyme disease, and cytology. There was also concern for sepsis secondary to possible urinary tract infection as the patient had lactic acidosis on admission and also CBC with bandemia. She was receiving ceftriaxone while in the hospital and cultures show no growth to date. Around 6 p.m., I was called to the bedside because the patient was upset and wanted to leave against medical advice. The patient is alert, awake, and oriented x3 but does not seem to have insight to her condition, so I did not think she could sign against medical advice by herself but at that time her was present at bedside and he is her surrogate decision maker. I did explain to the in plain words that I think the patient has cognitive decline of unclear etiology at this time and I do not think she understands what is happening so I was appealing to him to try and convince her to stay in the hospital longer, so we could continue her workup. I talked about my conversation with the neurologist and the plan to have the above-mentioned tests performed. I also explained my concern about the possibility of an infection probably a urinary tract infection with her laboratory changes as described above. The patient's verbalized understanding and he states that at that point he would take the patient home because she did not want to be "poked anymore." I explained at this time she does not have a clear diagnosis and I am concerned that whatever it is going on with her will continue to progress may cause permanent disability or even . The patient' s verbalized understanding of my explanation and he states that he will take her home and follow up with her primary care provider. I did tell him that they can return to the emergency room at any time if he feels that she is getting worse and we could continue her workup in the hospital ; otherwise, if he goes to see to provider, they could try to make arrangements to have this workup including the neurology evaluation done as outpatient. I made it very clear since her diagnoses are still unclear that it is difficult for me to give him a clear prognosis that I am concerned enough with her condition that I will prefer that she stay in the hospital to complete this workup. I did offer the option of staying a little longer so that she could have her discharge instructions and also we could talk about antibiotics. I think she should take as outpatient for her possible UTI, but they refused to wait. In any case, we will send prescriptions for cefuroxime to [facility] in [place], so the patient could be treated at least until her culture results come back confirming or ruling out urinary tract infection. An against medical form was filled up and signed with . The patient being discharged against medical advice at this time. PHYSICAL EXAMINATION: Vital Signs: Temperature of 97.7, heart rate is 74, respiratory rate is 16, oxygen saturation is 95% on 3 L, blood pressure is 121/ 65. General: She is an elderly lady, appears older than stated age, cachectic but with cushingoid body habitus. CVS: Normal S1, S2. Irregular. Chest: Breath sounds bilaterally diminished. Neuro: She is alert, awake, and oriented x3 but needs reminders by her . She is able to move all 4 extremities. If the patient goes to follow up with her primary care provider, I believe her COPD would be enough to justify a palliative care evaluation as this seems to be very advanced and she is cachectic. Please keep in mind this a summarized version of the hospital events. This is an addendum to her discharge summary by DERECK Holden. If you any questions, please do not hesitate to call me at [phone] or please obtain the full medical records. TONIA Huddleston MD [id number]/CPS #: [id number]/CPS #: [id number] VAL
== END 2018-06-25 18:25 | disposition left against medical advice (07) | DRG 872 ==
LOC: ED 14:10 → MEDTELE 17:42 → OBSVTOIN 06-25 10:00
PROVIDERS: ADMIT Internal Medicine; ATTEND Internal Medicine
DX: A41.9 Sepsis, unspecified organism (principal); N39.0 Urinary tract infection, site not specified; I50.20 Unspecified systolic (congestive) heart failure; I47.1 Supraventricular tachycardia; E87.2 Acidosis; R00.8 Other abnormalities of heart beat; J44.9 Chronic obstructive pulmonary disease, unspecified; I25.10 Atherosclerotic heart disease of native coronary artery without angina pectoris; E78.5 Hyperlipidemia, unspecified; I11.0 Hypertensive heart disease with heart failure; R41.81 Age-related cognitive decline; E87.6 Hypokalemia; F41.9 Anxiety disorder, unspecified; R25.1 Tremor, unspecified; H05.20 Unspecified exophthalmos; W18.30XA Fall on same level, unspecified, initial encounter; Z99.81 Dependence on supplemental oxygen; Y92.009 Unspecified place in unspecified non-institutional (private) residence as the place of occurrence of the external cause; I25.2 Old myocardial infarction; Z79.82 Long term (current) use of aspirin; Z79.52 Long term (current) use of systemic steroids; Z79.899 Other long term (current) drug therapy; Z88.0 Allergy status to penicillin; Z82.49 Family history of ischemic heart disease and other diseases of the circulatory system; Z83.3 Family history of diabetes mellitus; Z87.891 Personal history of nicotine dependence
CPT/HCPCS: 36415; 70450; 70551; 71045; 80048; 80053; 80307; 80320; 80329; 81003; 81015; 82140; 82533; 83605; 84443; 84484; 85025; 87040; 87086; 93005; 94640; 99284; A9270-GY; G0480; J0696; J1650; J3480; J7512